=== PATIENT | female | born 1975 | race Caucasian/White ===

== ENCOUNTER 2021-10-20 03:42 | Emergency (ER) | payer OTHER ==
[2021-10-20 03:34] LABS: BASOPHIL 0.5 % (0-2); HCT 44.7 % (37.0-47.0); HGB 15.5 g/dl (12.5-16.0); LYMPHOCYTE 11.7 % (15-48); MCH 30.8 pg (25.0-31.0); MCHC 34.7 g/dL (32.0-36.0); MCV 88.9 fL (78.0-100.0); MONOCYTE 5.7 % (0-12); MPV 9.6 fL (6.0-9.5); NEUTROPHIL 79.7 % (41-80); NRBC 0; PLT 335 K/uL (150-400); RBC 5.03 M/uL (4.20-5.40); RDW 12.2 % (11.5-14.0); WBC 19.6 K/uL (4.0-10.5)
[2021-10-20 03:51] LABS: ALBUMIN 3.9 g/dL (3.4-5.0); BILIRUBIN - TOTAL 1.4 mg/dL (0.2-1.0); BUN/CREAT RATIO (CALC) 10.6 RATIO; CREATININE 0.85 mg/dL (0.51-0.95); GLOBULIN (CALCULATION) 3.6 g/dL; POTASSIUM 3.9 mmol/L (3.5-5.1); TOTAL PROTEIN 7.5 g/dL (6.4-8.2)
[2021-10-20] MEDS ORDERED: PREDNISONE 20MG20 MG PO (05:44)
[2021-10-20] MEDS ORDERED: VIBRAMYCIN100 MG PO (05:44)
[2021-10-20] MEDS ORDERED: ONDANSETRON ODT4 MG PO (05:44)
[2021-10-20] MEDS ORDERED: PROMETHAZINE/C120 ML PO ×2 (05:44→05:52)
[2021-10-21] MEDS ORDERED: PROMETHAZINE/C120 ML PO ×2 (07:06→07:07)
== END 2021-10-20 05:50 | disposition home or self-care (01) ==
LOC: FER 03:42
PROVIDERS: Internal Medicine
DX: U07.1 COVID-19 (principal); R55 Syncope and collapse; Z28.310 Unvaccinated for COVID-19; Z88.0 Allergy status to penicillin
CPT/HCPCS: 36415; 71045; 80053; 84145; 85025; 93005; J1100; J7030